=== PATIENT | female | born 1965 | race Caucasian/White ===

== ENCOUNTER 2017-02-06 18:48 | Inpatient (IN) | payer BC ==
[2017-02-06] MEDS ORDERED: ONDANSETRON 4 MG/2 ML VIAL IVP STA (19:50)
[2017-02-06] MEDS ORDERED: RX INFO: IV CONTRAST WAS GIVEN 1 EACH MISC MISCELLANE PRN (19:50)
[2017-02-06] MEDS ORDERED: SODIUM CHLORIDE 0.9% 1,000 ML IV STA ×2 (19:50)
[2017-02-06] MEDS ORDERED: SODIUM CHLORIDE 0.9% 500 ML IV STA (19:50)
[2017-02-06] MEDS ORDERED: MORPHINE SULFATE 4 MG/ML SYRINGE IV STA (19:50)
--- NOTE | 2017-02-06 19:55 | ED ---
General Adult HPI - General Chief complaint: Abdominal Pain Stated complaint: poss bowel obstruction Time Seen by Provider: 02/06/17 19:38 Source: patient, RN notes reviewed, old records reviewed Mode of arrival: ambulatory Limitations: no limitations - History of Present Illness Initial comments: This is a 51-year-old female ER for evaluation. This patient's present today for evaluation of abdominal pain, severe bowel pain. Patient has complex bowel history, complex surgical history. Patient states she has severe cramping of bowel pain with nausea no vomiting last [place] last last night. No fevers. No travel history no sick contacts to family members with similar symptoms - Related Data Home Medications Medication Instructions Recorded Confirmed Hydrochlorothiazide [Hydrodiuril] 25 mg PO DAILY 11/08/14 02/06/17 Ibuprofen [Motrin] 800 mg PO TID PRN 11/09/14 02/06/17 HYDROcodone/APAP 10-325MG [[place] 1 tab PO TID PRN 02/06/17 02/06/17 10-325] Allergies Allergy/AdvReac Type Severity Reaction Status Date / Time Penicillins Allergy Rash/Hives Verified 02/06/17 19:07 Sulfa (Sulfonamide Allergy Rash/Hives Verified 02/06/17 19:07 Antibiotics) Review of Systems ROS Statement: Those systems with pertinent positive or pertinent negative responses have been documented in the HPI. ROS Other: All systems not noted in ROS Statement are negative. Past Medical History Past Medical History: Hypertension Additional Past Medical History / Comment(s): knee pain obesity History of Any Multi-Drug Resistant Organisms: ESBL Date of last positivie culture/infection: 12/04/16 MDRO Source:: [email or web address] Past Surgical History: Appendectomy, Cholecystectomy Additional Past Surgical History / Comment(s): breast reduction, lap band Past Anesthesia/Blood Transfusion Reactions: No Reported Reaction Past Psychological History: Anxiety Smoking Status: Never smoker Past Alcohol Use History: Occasional Past Drug Use History: None Reported General Exam Limitations: no limitations General appearance: alert, in no apparent distress, obese Head exam: Present: atraumatic, normocephalic, normal inspection Eye exam: Present: normal appearance, PERRL, EOMI. Absent: scleral icterus, conjunctival injection, periorbital swelling ENT exam: Present: normal exam, mucous membranes moist Neck exam: Present: normal inspection. Absent: tenderness, meningismus, lymphadenopathy Respiratory exam: Present: normal lung sounds bilaterally. Absent: respiratory distress, wheezes, rales, rhonchi, stridor Cardiovascular Exam: Present: regular rate, normal rhythm, normal heart sounds. Absent: systolic murmur, diastolic murmur, rubs, gallop, clicks GI/Abdominal exam: Present: soft, normal bowel sounds. Absent: distended, tenderness, guarding, rebound, rigid Extremities exam: Present: normal inspection, full ROM, normal capillary refill. Absent: tenderness, pedal edema, joint swelling, calf tenderness Back exam: Present: normal inspection Neurological exam: Present: alert, oriented X3, CN II-XII intact Psychiatric exam: Present: normal affect, normal mood Skin exam: Present: warm, dry, intact, normal color. Absent: rash Course Vital Signs 02/06/17 02/06/17 19:04 21:13 Temperature 98.3 F Pulse Rate 90 85 Respiratory 18 18 Rate Blood Pressure 178/94 141/64 O2 Sat by Pulse 99 98 Oximetry - Reevaluation(s) Reevaluation #1: 02/06/17 21:21 Patient's pain is controlled Medical Decision Making - Medical Decision Making [age] female year with multiple abdominal surgeries coming in with abdominal pain. Positive small bowel obstruction, Patel for nothing by mouth pain control - Lab Data Result diagrams: 02/06/17 20:37 02/06/17 20:37 Lab Results 02/06/17 02/06/17 02/06/17 Range/Units 20:37 20:37 20:37 WBC 12.9 H (3.8-10.6) k/uL RBC 5.37 (3.80-5.40) m/uL Hgb 16.0 (11.4-16.0) gm/dL Hct 44.4 (34.0-46.0) % MCV 82.8 (80.0-100.0) fL MCH 29.8 (25.0-35.0) pg MCHC 36.0 (31.0-37.0) g/dL RDW 13.5 (11.5-15.5) % Plt Count 278 (150-450) k/uL Neutrophils % 82 % Lymphocytes % 11 % Monocytes % 4 % Eosinophils % 1 % Basophils % 0 % Neutrophils # 10.7 H (1.3-7.7) k/uL Lymphocytes # 1.4 (1.0-4.8) k/uL Monocytes # 0.5 (0-1.0) k/uL Eosinophils # 0.1 (0-0.7) k/uL Basophils # 0.0 (0-0.2) k/uL Sodium 141 (137-145) mmol/L Potassium 4.1 (3.5-5.1) mmol/L Chloride 103 (98-107) mmol/L Carbon Dioxide 25 (22-30) mmol/L Anion Gap 13 mmol/L BUN 19 H (7-17) mg/dL Creatinine 0.60 (0.52-1.04) mg/dL Est GFR (MDRD) Af Amer >60 (>60 ml/min/1.73 sqM) Est GFR (MDRD) Non-Af >60 (>60 ml/min/1.73 sqM) Glucose 121 H (74-99) mg/dL Plasma Lactic Acid Frank 1.6 (0.7-2.0) mmol/L Calcium 9.8 (8.4-10.2) mg/dL Total Bilirubin 1.2 (0.2-1.3) mg/dL AST 48 H (14-36) U/L ALT 41 (9-52) U/L Alkaline Phosphatase 95 (38-126) U/L Total Protein 7.7 (6.3-8.2) g/dL Albumin 4.5 (3.5-5.0) g/dL Amylase 39 (30-110) U/L Lipase 177 (23-300) U/L - Radiology Data Radiology results: report reviewed (CT abdomen and pelvis positive for small bowel obstruction), image reviewed Disposition Clinical Impression: SBO (small bowel obstruction) Disposition: ADMITTED IP TO THIS [facility] Condition: Fair Referrals: Melissa Barnes MD [Primary Care Provider] - 1-2 days
[2017-02-06 21:05] LABS: ALT 41 U/L (9-52); AST 48 U/L (14-36); Alkaline Phosphatase 95 U/L (38-126); Amylase 39 U/L (30-110); Anion Gap 13 mmol/L; Blood Urea Nitrogen 19 mg/dL (7-17); Calcium 9.8 mg/dL (8.4-10.2); Carbon Dioxide 25 mmol/L (22-30); Chloride 103 mmol/L (98-107); Glucose 121 mg/dL (74-99); Non-African American GFR(MDRD) >60 (>60 ml/min/1.73 sqM); Sodium 141 mmol/L (137-145); Total Bilirubin 1.2 mg/dL (0.2-1.3); Total Protein 7.7 g/dL (6.3-8.2)
[2017-02-06 21:07] LABS: Potassium 4.1 mmol/L (3.5-5.1)
[2017-02-06 21:08] LABS: Basophils % (A) 0 %; CHCM 36.5; Eosinophils # (A) 0.1 k/uL (0-0.7); Eosinophils % (A) 1 %; HCT 44.4 % (34.0-46.0); HDW 3.16; Luc # (Auto) 0.14; Luc % (Auto) 1; Lymphocytes # (A) 1.4 k/uL (1.0-4.8); Lymphocytes % (A) 11 %; MCH 29.8 pg (25.0-35.0); MCV 82.8 fL (80.0-100.0); Mean Platelet Volume 7.5; Monocytes # (A) 0.5 k/uL (0-1.0); Monocytes % (A) 4 %; Neutrophils # (A) 10.7 k/uL (1.3-7.7); Neutrophils % (A) 82 %; RBC 5.37 m/uL (3.80-5.40); RDW 13.5 % (11.5-15.5); WBC 12.9 k/uL (3.8-10.6); WBC (Perox) 12.41
--- NOTE | 2017-02-06 21:10 | CT ---
EXAMINATION TYPE: CT abdomen pelvis w con DATE OF EXAM: 02/06/2017 COMPARISON: 06/04/2010 HISTORY: Generalized abdominal pain with bloating. CT DLP: 3236.80 mGycm Automated exposure control for dose reduction was used. TECHNIQUE: Helical acquisition of images was performed from the lung bases through the pelvis. CONTRAST: Performed without Oral Contrast and with IV Contrast, patient injected with 100 mL of Omnipaque 300. FINDINGS: There is a sleeve around the gastric fundus. Liver shows no focal defect. There are clips from cholec ystectomy. Bile ducts are not dilated. Spleen and pancreas appear normal. There is no adrenal mass. Kidneys show satisfactory contrast opacification. There are probably left r enal parapelvic cysts. There is no retroperitoneal adenopathy.. Left ureter is not dilated. There are multiple distended small bowel loops with fluid levels. These measure up to 4.[address] The distal small bowel has normal diameter. I see no intestinal wall thickening. Bladder distends smoothly. There is no sign of a pelvic mass. Appendix is not definitely seen. There is no sign of appendicitis. I see no bony destructive process. There are spondylotic changes in the t horacic and lumbar spine. IMPRESSION: THERE ARE DILATED LOOPS OF PROXIMAL SMALL BOWEL WITH FLUID CONSISTENT WITH A PARTIAL MECHANICAL OBSTR UCTION. THIS APPEARS NEW COMPARED TO OLD EXAM. THE TRANSITION POINT IS NOT IDENTIFIED.
[2017-02-06 21:20] LABS: Creatine Kinase 91 U/L (30-135)
[2017-02-06] MEDS ORDERED: SODIUM CHLORIDE 0.9% 1,000 ML IV ONE (21:21)
[2017-02-06] MEDS ORDERED: PANTOPRAZOLE 40 MG/10 ML VIAL IVP STA (21:23)
[2017-02-06] MEDS ORDERED: ONDANSETRON 4 MG/2 ML VIAL IVP PRN (21:23)
[2017-02-06 21:32] LABS: Creatine Kinase MB 1.4 ng/mL (0.0-2.4); Troponin I <0.012 ng/mL (0.000-0.034)
[2017-02-07] MEDS: MORPHINE SULFATE 4 MG/ML SYRINGE IVP PRN ×4 (00:07→12:31)
[2017-02-07 00:17] LABS: Appearance,Urine Clear (Clear); Bilirubin,Urine Negative (Negative); Glucose,Urine (UA) Negative (Negative); Ketones,Urine Negative (Negative); Leukocyte Esterase,Urine Negative (Negative); Nitrite,Urine Negative (Negative); Protein,Urine Negative (Negative); Specific Gravity,Urine 1.043 (1.001-1.035); UA Billing (MACRO vs. MICRO) CHEM; Urobilinogen,Urine <2.0 mg/dL (<2.0)
[2017-02-07 02:02] VITALS: RESP 20
[2017-02-07] MEDS: ENOXAPARIN 40 MG/0.4 ML SYRINGE SQ SCH (07:53)
[2017-02-07] MEDS: PANTOPRAZOLE 40 MG/10 ML VIAL IVP SCH (07:58)
[2017-02-07] MEDS: BISACODYL 10 MG SUPP RECTAL STA ×2 (11:22→15:20)
[2017-02-07 11:25] VITALS: BMI 50.5
[2017-02-07] MEDS ORDERED: HYDROcodone/APAP 10-325MG 1 EACH TAB PO PRN (12:04)
[2017-02-07] MEDS ORDERED: IBUPROFEN 800 MG TAB PO PRN (12:04)
--- NOTE | 2017-02-07 12:50 | P.GSHP ---
History of Present Illness H&P Date: 02/07/17 Chief Complaint: Abdominal pain The patient began developing crampy abdominal pain yesterday. It progressed so she came into the emergency department and was admitted. She hasn't had anything like this in the past. She did have some constipation. She had a very small hard bowel movement yesterday. She was not passing gas yesterday. She started passing some today and is feeling better. No fevers or chills. Some nausea but no vomiting. No one at home is been ill. SHe did have a colonoscopy done but it was probably 12 years ago. No history of ulcer disease. - Review of Systems All systems: negative - Constitutional Constitutional: Denies chills, Denies fever Past Medical History Past Medical History: Hypertension, Respiratory Disorder Additional Past Medical History / Comment(s): knee pain obesity History of Any Multi-Drug Resistant Organisms: ESBL Date of last positivie culture/infection: 12/04/14 MDRO Source:: [email or web address] Past Surgical History: Appendectomy, Cholecystectomy Additional Past Surgical History / Comment(s): breast reduction, lap band Past Anesthesia/Blood Transfusion Reactions: No Reported Reaction Past Psychological History: Anxiety Smoking Status: Never smoker Past Alcohol Use History: Occasional Past Drug Use History: None Reported - Past Family History Mother Family Medical History: Cancer Father Family Medical History: Cancer Medications and Allergies Home Medications Medication Instructions Recorded Confirmed Type Hydrochlorothiazide [Hydrodiuril] 25 mg PO DAILY 11/08/14 02/06/17 History Ibuprofen [Motrin] 800 mg PO TID PRN 11/09/14 02/06/17 History HYDROcodone/APAP 10-325MG [[place] 1 tab PO TID PRN 02/06/17 02/06/17 History 10-325] Allergies Allergy/AdvReac Type Severity Reaction Status Date / Time Penicillins Allergy Rash/Hives Verified 02/06/17 19:07 Sulfa (Sulfonamide Allergy Rash/Hives Verified 02/06/17 19:07 Antibiotics) Surgical - Exam Osteopathic Statement: *. No significant issues noted on an osteopathic structural exam other than those noted in the History and Physical/Consult. Vital Signs Temp Pulse Resp BP Pulse Ox 98.3 F 90 18 178/94 99 02/06/17 19:04 02/06/17 19:04 02/06/17 19:04 02/06/17 19:04 02/06/17 19:04 - General well developed, well nourished, no distress, obese - Eyes normal ocular movement - ENT normal mucosa, no congestion - Neck trachea midline, no lymphadectomy - Respiratory normal expansion, normal respiratory effort, clear to auscultation - Cardiovascular Rhythm: regular - Abdomen Abdomen: soft, tender (Minimal epigastric tenderness), surgical scars (Right lower abdomen and. Umbilical), no guarding, no rigid, no rebound, no distended (No tympany to percussion) Hernia: no umbilical - Psychiatric oriented to time, oriented to person, oriented to place, speech is normal, memory intact Results - Labs 02/06/17 20:37 02/06/17 20:37 Abnormal Lab Results - Last 24 Hours (Table) 02/06/17 02/06/17 02/06/17 Range/Units 20:37 20:37 23:40 WBC 12.9 H (3.8-10.6) k/uL Neutrophils # 10.7 H (1.3-7.7) k/uL BUN 19 H (7-17) mg/dL Glucose 121 H (74-99) mg/dL AST 48 H (14-36) U/L Ur Specific [place] 1.043 H (1.001-1.035) Microbiology - Last 24 Hours (Table) 02/06/17 23:40 Urine Culture - Preliminary Urine,Voided Diabetes panel 02/06/17 Range/Units 20:37 Sodium 141 (137-145) mmol/L Potassium 4.1 (3.5-5.1) mmol/L Chloride 103 (98-107) mmol/L Carbon Dioxide 25 (22-30) mmol/L BUN 19 H (7-17) mg/dL Creatinine 0.60 (0.52-1.04) mg/dL Glucose 121 H (74-99) mg/dL Calcium 9.8 (8.4-10.2) mg/dL AST 48 H (14-36) U/L ALT 41 (9-52) U/L Alkaline Phosphatase 95 (38-126) U/L Total Protein 7.7 (6.3-8.2) g/dL Albumin 4.5 (3.5-5.0) g/dL Calcium panel 02/06/17 Range/Units 20:37 Calcium 9.8 (8.4-10.2) mg/dL Albumin 4.5 (3.5-5.0) g/dL Pituitary panel 02/06/17 Range/Units 20:37 Sodium 141 (137-145) mmol/L Potassium 4.1 (3.5-5.1) mmol/L Chloride 103 (98-107) mmol/L Carbon Dioxide 25 (22-30) mmol/L BUN 19 H (7-17) mg/dL Creatinine 0.60 (0.52-1.04) mg/dL Glucose 121 H (74-99) mg/dL Calcium 9.8 (8.4-10.2) mg/dL Adrenal panel 02/06/17 Range/Units 20:37 Sodium 141 (137-145) mmol/L Potassium 4.1 (3.5-5.1) mmol/L Chloride 103 (98-107) mmol/L Carbon Dioxide 25 (22-30) mmol/L BUN 19 H (7-17) mg/dL Creatinine 0.60 (0.52-1.04) mg/dL Glucose 121 H (74-99) mg/dL Calcium 9.8 (8.4-10.2) mg/dL Total Bilirubin 1.2 (0.2-1.3) mg/dL AST 48 H (14-36) U/L ALT 41 (9-52) U/L Alkaline Phosphatase 95 (38-126) U/L Total Protein 7.7 (6.3-8.2) g/dL Albumin 4.5 (3.5-5.0) g/dL - Imaging CT scan - abdomen: report reviewed, image reviewed Assessment and Plan (1) Ileus Status: Acute (2) Constipation Status: Acute Plan: She is been admitted. We'll start her on clear liquids today. Advance it as tolerated. Given her suppository to stimulate colon function. Likely be able to discharge her in 24-48 hours. Recommend outpatient colonoscopy.
[2017-02-07] MEDS ORDERED: HYDROCHLOROTHIAZIDE 25 MG TAB PO SCH (21:00)
[2017-02-08] MEDS: PANTOPRAZOLE 40 MG/10 ML VIAL IVP SCH (07:33)
[2017-02-08] MEDS: ENOXAPARIN 40 MG/0.4 ML SYRINGE SQ SCH (07:33)
[2017-02-08 08:29] VITALS: BP 152/88; PULSE 75; TEMP 97.4
--- NOTE | 2017-02-08 11:21 | P.PN ---
Subjective Principal diagnosis: Abdominal pain rule out small bowel obstruction The patient's feeling much better today. She is tolerating a clear liquid diet. Positive flatus. No nausea or vomiting. Objective - Vital Signs Vital signs: Vital Signs Temp 97.4 F L 02/08/17 08:19 Pulse 75 02/08/17 08:19 Resp 20 02/08/17 08:19 BP 152/88 02/08/17 08:19 Pulse Ox 96 02/08/17 08:19 Intake & Output 02/07/17 02/08/17 02/08/17 18:59 06:59 18:59 Intake Total 480 200 Balance 480 200 Weight 129.274 kg 129.274 kg Intake: Oral 480 200 Other: # Voids 1 # Bowel Movements 1 - Constitutional General appearance: Present: cooperative, no acute distress - Gastrointestinal General gastrointestinal: Present: normal bowel sounds, soft. Absent: tenderness (No guarding no rebound) - Labs CBC & Chem 7: 02/06/17 20:37 02/06/17 20:37 Labs: Microbiology - Last 24 Hours (Table) 02/06/17 23:40 Urine Culture - Final Urine,Voided Strep agalactiae - (group b) Assessment and Plan (1) Ileus Status: Acute (2) Constipation Status: Acute Plan: We'll start her on a regular diet. If she is able to tolerate it she can be discharged later today on a scheduled stool softener. Follow-up for outpatient colonoscopy
== END 2017-02-08 14:38 | disposition home or self-care (01) | DRG 390 ==
LOC: EC 18:48 → 4MS4W 21:21 → 6PED 02-07 14:19
PROVIDERS: ADMIT Surgery; ATTEND Surgery
DX: K56.7 Ileus, unspecified (principal); I10 Essential (primary) hypertension; K59.00 Constipation, unspecified; M25.569 Pain in unspecified knee; E66.9 Obesity, unspecified; Z88.0 Allergy status to penicillin; Z88.2 Allergy status to sulfonamides; Z86.59 Personal history of other mental and behavioral disorders; Z87.09 Personal history of other diseases of the respiratory system; Z79.899 Other long term (current) drug therapy; Z71.3 Dietary counseling and surveillance; Z80.9 Family history of malignant neoplasm, unspecified; Z90.49 Acquired absence of other specified parts of digestive tract; Z98.84 Bariatric surgery status; Z87.440 Personal history of urinary (tract) infections; Z79.1 Long term (current) use of non-steroidal anti-inflammatories (NSAID); Z79.891 Long term (current) use of opiate analgesic
CPT/HCPCS: 36415; 74177; 80053; 81003; 82150; 82550; 82553; 83605; 83690; 84484; 85025; 87086; 96361; 96374; 96375; 99285

== ENCOUNTER 2017-02-16 19:04 | Inpatient (IN) | payer BC ==
--- NOTE | 2017-02-16 19:18 | ED ---
General Adult HPI - General Chief complaint: Abdominal Pain Stated complaint: NVD, weakness Time Seen by Provider: 02/16/17 19:09 Source: patient Mode of arrival: EMS Limitations: no limitations - History of Present Illness Initial comments: Patient is a 51-year-old female with past medical history significant for small bowel obstruction approximately 10 days ago. The patient was admitted to the hospital and kept nothing by mouth prior to be starting on a clear liquid diet. Patient reports that she was discharged from the hospital 7 days ago and had been doing well tolerating regular diet. She reports that today she developed severe sharp abdominal pain in the epigastric and sanjay-umbilical region. She reports at this pain feels somewhat inferior in location to the location of the pain of prior bowel obstructions. Pain is associated with nausea and a single episode of nonbloody nonbilious emesis which occured en route to the hospital after being given narcotic pain medications. She does report the pain is worse with deep breathing or any palpation of the abdomen. She denies any fevers , chills, chest pain or shortness of breath. She reports she had a large soft bowel movement yesterday and a formed bowel movement today. She denies any change in bladder habits. She denies any dysuria, urinary frequency or hesitancy. She can't identify any relieving factors to the pain. -: hour(s) Location: abdomen Severity scale (1-10): 10 Quality: sharp Consistency: intermittent, colicky Improves with: none Worsens with: movement, other (palpation) Associated Symptoms: loss of appetite, nausea/vomiting - Related Data Home Medications Medication Instructions Recorded Confirmed Hydrochlorothiazide [Hydrodiuril] 25 mg PO DAILY 11/08/14 02/16/17 Ibuprofen [Motrin] 800 mg PO TID PRN 11/09/14 02/16/17 HYDROcodone/APAP 10-325MG [[place] 1 tab PO TID PRN 02/06/17 02/16/17 10-325] Previous Rx's Medication Instructions Recorded Docusate [Colace] 100 mg PO DAILY #100 capsule 02/08/17 Allergies Allergy/AdvReac Type Severity Reaction Status Date / Time Penicillins Allergy Rash/Hives Verified 02/16/17 20:03 Sulfa (Sulfonamide Allergy Rash/Hives Verified 02/16/17 20:03 Antibiotics) Review of Systems ROS Statement: Those systems with pertinent positive or pertinent negative responses have been documented in the HPI. ROS Other: All systems not noted in ROS Statement are negative. Constitutional: Denies: fever ENT: Denies: throat pain Respiratory: Denies: cough, dyspnea, wheezes Cardiovascular: Denies: chest pain, palpitations Endocrine: Reports: fatigue Gastrointestinal: Reports: abdominal pain, nausea, vomiting. Denies: diarrhea, constipation Genitourinary: Denies: urgency, dysuria Musculoskeletal: Denies: back pain Skin: Denies: rash Neurological: Denies: headache, weakness Psychiatric: Denies: anxiety Hematological/Lymphatic: Denies: easy bleeding, easy bruising Past Medical History Past Medical History: Hypertension, Respiratory Disorder Additional Past Medical History / Comment(s): knee pain obesity History of Any Multi-Drug Resistant Organisms: ESBL Date of last positivie culture/infection: 12/04/14 MDRO Source:: [email or web address] Past Surgical History: Appendectomy, Cholecystectomy Additional Past Surgical History / Comment(s): breast reduction, lap band Past Anesthesia/Blood Transfusion Reactions: No Reported Reaction Past Psychological History: Anxiety Smoking Status: Never smoker Past Alcohol Use History: Occasional Past Drug Use History: None Reported - Past Family History Mother Family Medical History: Cancer Father Family Medical History: Cancer General Exam Limitations: no limitations General appearance: alert, obese, other (appears uncomfortable) Head exam: Present: atraumatic, normocephalic Eye exam: Present: normal appearance, PERRL ENT exam: Present: normal exam Neck exam: Present: normal inspection. Absent: tenderness, meningismus, lymphadenopathy Respiratory exam: Present: normal lung sounds bilaterally. Absent: respiratory distress, wheezes, rales, rhonchi, stridor Cardiovascular Exam: Present: regular rate, normal rhythm, normal heart sounds. Absent: systolic murmur, diastolic murmur, rubs, gallop, clicks GI/Abdominal exam: Present: soft, distended, tenderness, diminished bowel sounds. Absent: guarding, rebound, rigid Rectal exam: Present: deferred Extremities exam: Present: normal inspection, full ROM, normal capillary refill. Absent: tenderness, pedal edema, joint swelling, calf tenderness Back exam: Present: normal inspection Neurological exam: Present: alert, oriented X3, CN II-XII intact Psychiatric exam: Present: normal affect, normal mood Skin exam: Present: warm, dry, intact, normal color. Absent: rash Course Vital Signs 02/16/17 02/16/17 19:07 20:09 Temperature 97.8 F Pulse Rate 88 86 Respiratory 20 20 Rate Blood Pressure 190/96 182/88 O2 Sat by Pulse 96 98 Oximetry Medical Decision Making - Medical Decision Making Patient was seen and evaluated, vital signs reviewed History was obtained from the patient, her and medical record Physical exam and history of recurrent bowel obstruction Labs and acute abdominal series were ordered Zofran for nausea Acute abdominal series reveals air-fluid level in the stomach however that he is limited by patient's body habitus Labs reveal leukocytosis with neutrophilia, considering this and the patient's acute abdominal pain I will order a computed tomography scan for further evaluation Morphine Given for analgesia CT reveals recurrent SBO Patient care was discussed with Leanne who accepts admission for small bowel obstruction to Dr. Holley - Lab Data Result diagrams: 02/16/17 19:15 02/16/17 19:15 Lab Results 02/16/17 02/16/17 Range/Units 19:15 19:15 WBC 17.5 H (3.8-10.6) k/uL RBC 5.52 H (3.80-5.40) m/uL Hgb 16.2 H (11.4-16.0) gm/dL Hct 46.3 H (34.0-46.0) % MCV 83.9 (80.0-100.0) fL MCH 29.4 (25.0-35.0) pg MCHC 35.1 (31.0-37.0) g/dL RDW 13.6 (11.5-15.5) % Plt Count 335 (150-450) k/uL Neutrophils % 89 % Lymphocytes % 6 % Monocytes % 4 % Eosinophils % 1 % Basophils % 0 % Neutrophils # 15.5 H (1.3-7.7) k/uL Lymphocytes # 1.0 (1.0-4.8) k/uL Monocytes # 0.7 (0-1.0) k/uL Eosinophils # 0.2 (0-0.7) k/uL Basophils # 0.0 (0-0.2) k/uL Sodium 143 (137-145) mmol/L Potassium 3.4 L (3.5-5.1) mmol/L Chloride 103 (98-107) mmol/L Carbon Dioxide 26 (22-30) mmol/L Anion Gap 14 mmol/L BUN 20 H (7-17) mg/dL Creatinine 0.70 (0.52-1.04) mg/dL Est GFR (MDRD) Af Amer >60 (>60 ml/min/1.73 sqM) Est GFR (MDRD) Non-Af >60 (>60 ml/min/1.73 sqM) Glucose 115 H (74-99) mg/dL Calcium 10.1 (8.4-10.2) mg/dL Total Bilirubin 1.0 (0.2-1.3) mg/dL AST 46 H (14-36) U/L ALT 45 (9-52) U/L Alkaline Phosphatase 90 (38-126) U/L Total Protein 7.8 (6.3-8.2) g/dL Albumin 4.6 (3.5-5.0) g/dL Lipase 229 (23-300) U/L Disposition Clinical Impression: SBO (small bowel obstruction), Leukocytosis, Dehydration Disposition: ADMITTED IP TO THIS [facility] Condition: Good Referrals: Melissa Barnes MD [Primary Care Provider] - 1-2 days Decision Date: 02/16/17 Decision Time: 21:04
[2017-02-16] MEDS ORDERED: ONDANSETRON 4 MG/2 ML VIAL IVP STA (19:25)
[2017-02-16] MEDS ORDERED: SODIUM CHLORIDE 0.9% 1,000 ML IV ONE ×2 (19:25→20:21)
[2017-02-16 19:48] LABS: Basophils % (A) 0 %; CH 29.6; CHCM 35.5; Eosinophils # (A) 0.2 k/uL (0-0.7); Eosinophils % (A) 1 %; HCT 46.3 % (34.0-46.0); HDW 3.09; HGB 16.2 gm/dL (11.4-16.0); Luc # (Auto) 0.09; Luc % (Auto) 1; Lymphocytes % (A) 6 %; MCH 29.4 pg (25.0-35.0); MCHC 35.1 g/dL (31.0-37.0); MCV 83.9 fL (80.0-100.0); Mean Platelet Volume 7.8; Monocytes # (A) 0.7 k/uL (0-1.0); Monocytes % (A) 4 %; Neutrophils # (A) 15.5 k/uL (1.3-7.7); Neutrophils % (A) 89 %; RBC 5.52 m/uL (3.80-5.40); RDW 13.6 % (11.5-15.5); WBC 17.5 k/uL (3.8-10.6); WBC (Perox) 17.01
[2017-02-16 19:52] LABS: ALT 45 U/L (9-52); AST 46 U/L (14-36); Alkaline Phosphatase 90 U/L (38-126); Anion Gap 14 mmol/L; Blood Urea Nitrogen 20 mg/dL (7-17); Calcium 10.1 mg/dL (8.4-10.2); Carbon Dioxide 26 mmol/L (22-30); Chloride 103 mmol/L (98-107); Glucose 115 mg/dL (74-99); Non-African American GFR(MDRD) >60 (>60 ml/min/1.73 sqM); Potassium 3.4 mmol/L (3.5-5.1); Sodium 143 mmol/L (137-145); Total Protein 7.8 g/dL (6.3-8.2)
[2017-02-16] MEDS ORDERED: RX INFO: IV CONTRAST WAS GIVEN 1 EACH MISC MISCELLANE PRN (19:58)
[2017-02-16] MEDS ORDERED: MORPHINE SULFATE 4 MG/ML SYRINGE IVP STA (20:02)
--- NOTE | 2017-02-16 20:18 | XR ---
EXAMINATION TYPE: XR abdomen acute w cxr DATE OF EXAM: 02/16/2017 COMPARISON: NONE HISTORY: Patient has increased now pain and nausea for 3 hours history small bowel obstruction last w [facility]. She has a history of lap band placement. TECHNIQUE: Supine, upright, and left side down lateral decubitus views of the abdomen are obtained. Single AP view of the chest was also obtained. FINDINGS: There is no evidence for pneumoperitoneum. There is nonspecific bowel gas pattern. The stomach is distended and demonstrates an air-fluid level. Previously identified small bowel obstruction is not definitively seen on the current examination ho wever it is difficult to compare CT scan with the radiograph given the patient's habitus. The phi ang le of the lap band is 66 degrees which is slightly more than what would be expected however this is s table in appearance when compared to the CT scan from February 06. Some stool is noted in the cecum. IMPRESSION: The patient's small bowel obstruction is felt to have improved, however this is difficult to compare. Clinical correlation is required. The phi angle of the lap band is 66 degrees which is slightly more than normal however, it is stable when compared to the previous study from February 06.
--- NOTE | 2017-02-16 20:38 | CT ---
EXAMINATION TYPE: CT abdomen pelvis w con DATE OF EXAM: 02/16/2017 COMPARISON: February 06, 2017. HISTORY: Patient complains of nausea, vomiting, diarrhea, and weakness. CT DLP: 2191.1 mGycm Automated exposure control for dose reduction was used. TECHNIQUE: Helical acquisition of images was performed from the lung bases through the pelvis. CONTRAST: Performed without Oral Contrast and with IV Contrast, patient injected with 100 mL of Omnipaque 300. FINDINGS: Lung bases are clear. No pleural pericardial effusion is identified. Lap band is again noted. The stomach is filled with ingested material and there is an air-fluid level . It is much more distended than it was on the previous study. The liver demonstrates somewhat hypode nse appearance which is felt to be due to fatty infiltration. There has been a cholecystectomy. The s pleen, pancreas, adrenal glands, and kidneys are all unchanged. Prominent loops of small bowel are again identified similar to the previous study measuring up to 4 c m in diameter. These are considered to be dilated. There is no free intraperitoneal air or free fluid . The uterus is present. The urinary bladder is unremarkable. There is no mesenteric or retroperitone al lymphadenopathy. The aorta and osseous structures are unchanged. IMPRESSION: Findings similar to the previous study. Dilated loops of proximal small bowel are again noted consist ent with partial or early complete bowel bowel obstruction.
[2017-02-16] MEDS ORDERED: NALOXONE 0.4 MG/ML 1 ML VIAL IV PRN (20:58)
[2017-02-16] MEDS ORDERED: MORPHINE SULFATE 4 MG/ML SYRINGE IV PRN (20:58)
[2017-02-16 21:06] LABS: Appearance,Urine Clear (Clear); Bilirubin,Urine Negative (Negative); Glucose,Urine (UA) Negative (Negative); Ketones,Urine 1+ (Negative); Leukocyte Esterase,Urine Trace (Negative); Mucus,Urine Rare /hpf; Nitrite,Urine Negative (Negative); PH, Urine 5.5 (5.0-8.0); Particle Count 3044; Protein,Urine Negative (Negative); RBC,Urine 3 /hpf (0-5); Specific Gravity,Urine 1.032 (1.001-1.035); Squamous Epithelial Cell,Urine 2 /hpf (0-4); UA Billing (MACRO vs. MICRO) MICRO; Urobilinogen,Urine <2.0 mg/dL (<2.0); WBC,Urine 2 /hpf (0-5)
[2017-02-16] MEDS ORDERED: ONDANSETRON 4 MG/2 ML VIAL IVP PRN (22:46)
[2017-02-17] MEDS: SODIUM CHLORIDE 0.9% 1,000 ML IV SCH ×2 (00:15→15:53)
[2017-02-17] MEDS ORDERED: TEMAZEPAM 15 MG CAP PO PRN (00:30)
[2017-02-17] MEDS ORDERED: ALPRAZolam 0.25 MG TAB PO PRN (00:30)
[2017-02-17] MEDS ORDERED: hydrALAZINE HCL 20 MG/ML 1 ML VIAL IVP PRN (00:30)
[2017-02-17] MEDS ORDERED: cloNIDine HCL 0.1 MG TAB PO PRN (00:30)
[2017-02-17 03:47] VITALS: BMI 51.9
[2017-02-17 08:10] LABS: Basophils % (A) 0 %; CH 29.5; CHCM 34.9; Eosinophils # (A) 0.2 k/uL (0-0.7); Eosinophils % (A) 2 %; HCT 39.9 % (34.0-46.0); HDW 3.08; Luc # (Auto) 0.12; Luc % (Auto) 1; Lymphocytes # (A) 1.8 k/uL (1.0-4.8); Lymphocytes % (A) 19 %; MCH 29.9 pg (25.0-35.0); MCHC 35.2 g/dL (31.0-37.0); Mean Platelet Volume 7.5; Monocytes # (A) 0.4 k/uL (0-1.0); Monocytes % (A) 5 %; Neutrophils # (A) 6.9 k/uL (1.3-7.7); Neutrophils % (A) 72 %; RDW 13.6 % (11.5-15.5); WBC 9.5 k/uL (3.8-10.6); WBC (Perox) 9.64
[2017-02-17 08:12] LABS: ALT 34 U/L (9-52); AST 31 U/L (14-36); Alkaline Phosphatase 60 U/L (38-126); Anion Gap 9 mmol/L; Blood Urea Nitrogen 14 mg/dL (7-17); Calcium 8.4 mg/dL (8.4-10.2); Carbon Dioxide 28 mmol/L (22-30); Chloride 106 mmol/L (98-107); Glucose 89 mg/dL (74-99); Non-African American GFR(MDRD) >60 (>60 ml/min/1.73 sqM); Potassium 3.4 mmol/L (3.5-5.1); Sodium 143 mmol/L (137-145); Total Bilirubin 0.9 mg/dL (0.2-1.3)
[2017-02-17] MEDS: PANTOPRAZOLE 40 MG/10 ML VIAL IVP SCH (08:29)
[2017-02-17] MEDS: HEPARIN SODIUM,PORCINE 5,000 UNIT/ML 1 ML VIAL SQ SCH ×2 (08:29→20:34)
--- NOTE | 2017-02-17 10:50 | HP ---
HISTORY AND PHYSICAL DATE OF SERVICE: 02/16/2017. CHIEF COMPLAINT: Abdominal pain and nausea. HISTORY OF PRESENT ILLNESS: This 51-year-old woman with a past medical history of multiple medical problems such as history of hypertension, history of knee joint, obesity, history of E. coli, history of appendectomy and cholecystectomy, and lap-band surgery, being followed by Dr. Melissa Barnes in the outpatient setting, has had features of apparent past small bowel obstruction. Apparently recently patient was discharged, subsequently patient ate some peanuts which the patient ate also before the previous admission, and patient started developing sharp abdominal pain in the epigastric area/periumbilical area. The patient also felt nauseous. Patient came to [facility] and was admitted for further evaluation and treatment. The patient had an acute abdominal series as well as abdominal and pelvic CT scan. The CT scan of the abdomen showed findings similar to the previous study, dilated loops of small bowel consistent with partially early complete bowel obstruction. The patient was admitted for further evaluation and treatment. There is no history of fevers or rigors. No history of headache, loss of consciousness or seizures at this time. PAST MEDICAL HISTORY: Previous bowel obstruction, history of respiratory disorder, history of lap-band surgery, appendectomy, cholecystectomy, and hypertension. MEDICATIONS: Prior to admission: 1. Motrin 800 mg daily. 2. HydroDIURIL 25 mg daily. 3. [place] 10 mg t.i.d. p.r.n. 4. Colace 100 mg daily. ALLERGIES: PENICILLIN, SULFA. FAMILY HISTORY: History of cancer in the family. SOCIAL HISTORY: No history of smoking, no alcohol intake. REVIEW OF SYSTEMS: ENT: No diminished hearing or vision. CARDIOVASCULAR: No angina. RESPIRATORY: No cough or hemoptysis. GI: As mentioned. : No dysuria. NERVOUS SYSTEM: No numbness or weakness. MUSCULOSKELETAL: As mentioned. ENDOCRINE: No history of diabetes or hypothyroidism. CONSTITUTIONAL: No loss of consciousness. PHYSICAL EXAMINATION: GENERAL: Alert, oriented x3. VITAL SIGNS: Pulse 86, respirations 20, blood pressure 118/83, temperature 97.8 , pulse ox 98% room air. HEENT: Conjunctivae normal. NECK: No JVD. CARDIOVASCULAR: S1 and S2 muffled. LUNGS: Breath sounds diminished in the bases. No rhonchi, no crackles. ABDOMEN: Soft. Mild diffuse discomfort on palpation. No guarding. No rigidity. No mass palpable. No ascites. No hepatosplenomegaly. Bowel sounds present. EXTREMITIES: Legs, no edema, no swelling. NERVOUS SYSTEM: Higher functions as mentioned. Moves all limbs equally. No focal motor or sensory deficits. LYMPH: No lymph nodes palpable in the neck, axillae, groin. SKIN: No rashes. LABS: WBC 17.8, hemoglobin 16.2. ASSESSMENT: 1. Abdominal pain and nausea, possible acute partial small-bowel obstruction. 2. History of partial small bowel obstruction. 3. Hypertension. 4. History of extended-spectrum beta-lactamase Escherichia coli. 5. History of obesity and lap-band surgery. 6. History of cholecystectomy. 7. History of appendectomy. 8. History of anxiety. 9. Obesity with body mass index of 51.9. RECOMMENDATIONS AND DISCUSSION: This 51-year-old woman presented with multiple complex medical problems. We will monitor the patient closely. Continue the current management and symptomatic treatment. Otherwise I recommend surgical evaluation with Dr. Barnes and continue to monitor. Currently the patient is on n.p.o. diet. We will monitor blood sugars closely, p.r.n. blood pressure medications. Otherwise the prognosis is guarded. Repeat labs will be ordered. Further recommendations to follow. MMODL / IJN: [id number] / MTDFamilia
--- NOTE | 2017-02-17 12:04 | P.GSCN ---
History of Present Illness Consult date: 02/17/17 Reason for Consult: Bowel obstruction History of present illness: Patient is known to our service from a prior laparoscopic banding and prior laparoscopic cholecystectomy. Her band is currently empty. She was in the hospital in late January with similar symptoms. She was seen by Dr. Ba at that time. After about 48 hours the patient's symptoms had resolved and she was discharged home. She comes back to the hospital this time again with similar symptoms. Her symptoms include crampy abdominal pain left upper quadrant fullness and pain as well as nausea and vomiting. Her bowel habits have been fairly normal however and she did have a bowel movement both yesterday and today. CAT scan was performed which shows findings consistent with a partial small bowel obstruction with the transition point in the mid small bowel. This is similar findings to the last CAT scan from the last admission. Denies rectal bleeding or melena. No history of prior small bowel obstruction. Patient has a history of previous open appendectomy in her youth related to a ruptured appendix. Denies fevers or chills. Pain is improved today. White blood cell count was elevated at 17. Today it's normal. She is afebrile. She says she feels better today. Review of Systems The patient denies any acute changes in vision or hearing, no dysphagia or odynophagia, no chest pain or shortness of breath, no dysuria or hematuria, no headache, no runny nose, no rectal bleeding or melena, no unexplained weight loss Past Medical History Past Medical History: Hypertension, Respiratory Disorder Additional Past Medical History / Comment(s): knee pain obesity History of Any Multi-Drug Resistant Organisms: ESBL Year Discovered:: 12/04/14 MDRO Source:: [email or web address] Past Surgical History: Appendectomy, Cholecystectomy Additional Past Surgical History / Comment(s): breast reduction, lap band Past Anesthesia/Blood Transfusion Reactions: No Reported Reaction Past Psychological History: Anxiety Smoking Status: Never smoker Past Alcohol Use History: Occasional Past Drug Use History: None Reported - Past Family History Mother Family Medical History: Cancer Father Family Medical History: Cancer Medications and Allergies Home Medications Medication Instructions Recorded Confirmed Type Hydrochlorothiazide [Hydrodiuril] 25 mg PO DAILY 11/08/14 02/16/17 History Ibuprofen [Motrin] 800 mg PO TID PRN 11/09/14 02/16/17 History HYDROcodone/APAP 10-325MG [[place] 1 tab PO TID PRN 02/06/17 02/16/17 History 10-325] Docusate [Colace] 100 mg PO DAILY #100 capsule 02/08/17 02/16/17 Rx Allergies Allergy/AdvReac Type Severity Reaction Status Date / Time Penicillins Allergy Rash/Hives Verified 02/16/17 20:03 Sulfa (Sulfonamide Allergy Rash/Hives Verified 02/16/17 20:03 Antibiotics) Surgical - Exam Vital Signs Temp Pulse Resp BP Pulse Ox 97.8 F 88 20 190/96 96 02/16/17 19:07 02/16/17 19:07 02/16/17 19:07 02/16/17 19:07 02/16/17 19:07 Physical exam: General: Well-developed, well-nourished HEENT: Normocephalic, sclerae nonicteric Abdomen: Mild left upper quadrant tenderness, nondistended Extremities: No edema Neuro: Alert and oriented Results - Labs 02/17/17 07:16 02/17/17 07:16 Abnormal Lab Results - Last 24 Hours (Table) 02/16/17 02/16/17 02/16/17 Range/Units 19:15 19:15 20:00 WBC 17.5 H (3.8-10.6) k/uL RBC 5.52 H (3.80-5.40) m/uL Hgb 16.2 H (11.4-16.0) gm/dL Hct 46.3 H (34.0-46.0) % Neutrophils # 15.5 H (1.3-7.7) k/uL Potassium 3.4 L (3.5-5.1) mmol/L BUN 20 H (7-17) mg/dL Glucose 115 H (74-99) mg/dL AST 46 H (14-36) U/L Total Protein (6.3-8.2) g/dL Urine Ketones 1+ H (Negative) Ur Leukocyte Esterase Trace H (Negative) Urine Mucus Rare H (None) /hpf 02/17/17 Range/Units 07:16 WBC (3.8-10.6) k/uL RBC (3.80-5.40) m/uL Hgb (11.4-16.0) gm/dL Hct (34.0-46.0) % Neutrophils # (1.3-7.7) k/uL Potassium 3.4 L (3.5-5.1) mmol/L BUN (7-17) mg/dL Glucose (74-99) mg/dL AST (14-36) U/L Total Protein 6.0 L (6.3-8.2) g/dL Urine Ketones (Negative) Ur Leukocyte Esterase (Negative) Urine Mucus (None) /hpf Diabetes panel 02/16/17 02/17/17 Range/Units 19:15 07:16 Sodium 143 143 (137-145) mmol/L Potassium 3.4 L 3.4 L (3.5-5.1) mmol/L Chloride 103 106 (98-107) mmol/L Carbon Dioxide 26 28 (22-30) mmol/L BUN 20 H 14 (7-17) mg/dL Creatinine 0.70 0.63 (0.52-1.04) mg/dL Glucose 115 H 89 (74-99) mg/dL Calcium 10.1 8.4 (8.4-10.2) mg/dL AST 46 H 31 (14-36) U/L ALT 45 34 (9-52) U/L Alkaline Phosphatase 90 60 (38-126) U/L Total Protein 7.8 6.0 L (6.3-8.2) g/dL Albumin 4.6 3.5 (3.5-5.0) g/dL Calcium panel 02/16/17 02/17/17 Range/Units 19:15 07:16 Calcium 10.1 8.4 (8.4-10.2) mg/dL Albumin 4.6 3.5 (3.5-5.0) g/dL Pituitary panel 02/16/17 02/17/17 Range/Units 19:15 07:16 Sodium 143 143 (137-145) mmol/L Potassium 3.4 L 3.4 L (3.5-5.1) mmol/L Chloride 103 106 (98-107) mmol/L Carbon Dioxide 26 28 (22-30) mmol/L BUN 20 H 14 (7-17) mg/dL Creatinine 0.70 0.63 (0.52-1.04) mg/dL Glucose 115 H 89 (74-99) mg/dL Calcium 10.1 8.4 (8.4-10.2) mg/dL Adrenal panel 02/16/17 02/17/17 Range/Units 19:15 07:16 Sodium 143 143 (137-145) mmol/L Potassium 3.4 L 3.4 L (3.5-5.1) mmol/L Chloride 103 106 (98-107) mmol/L Carbon Dioxide 26 28 (22-30) mmol/L BUN 20 H 14 (7-17) mg/dL Creatinine 0.70 0.63 (0.52-1.04) mg/dL Glucose 115 H 89 (74-99) mg/dL Calcium 10.1 8.4 (8.4-10.2) mg/dL Total Bilirubin 1.0 0.9 (0.2-1.3) mg/dL AST 46 H 31 (14-36) U/L ALT 45 34 (9-52) U/L Alkaline Phosphatase 90 60 (38-126) U/L Total Protein 7.8 6.0 L (6.3-8.2) g/dL Albumin 4.6 3.5 (3.5-5.0) g/dL Assessment and Plan (1) SBO (small bowel obstruction) Narrative/Plan: Patient with CAT scan findings and history consistent with partial small bowel obstruction. This is recurrent after only approximately 1-2 weeks. The options of laparotomy or laparoscopy were discussed with the patient in detail. The patient is not interested in surgical approach at this point but is willing to reconsider pending her course during this hospital stay. Repeat abdominal x-rays will be ordered for tomorrow. The patient will be kept nothing by mouth. A nasogastric tube will be placed if there is any further vomiting. Will consider small bowel series later during this hospitalization or possibly as an outpatient as well. We'll follow closely with you. Status: Acute
[2017-02-17] MEDS: HYDROcodone/APAP 5-325MG 1 EACH TAB PO PRN ×2 (15:49→22:22)
--- NOTE | 2017-02-17 17:59 | PN ---
PROGRESS NOTE DATE OF SERVICE: 02/17/2017. This is a progress note. This 51-year-old, woman who was admitted with abdominal pain, nausea, vomiting, and acute partial small-bowel obstruction is being closely monitored. Dr. Cameron Spencer is following the patient closely. Dr. Barnes has recommended n.p.o. Continue conservative line of management. PHYSICAL EXAM: Alert oriented times three. Pulse 86, blood pressure 144/78, respiration 18, temperature 98.2, pulse ox 94% on room air. HEENT: Conjunctivae normal. Neck: No jugular venous distention. CARDIOVASCULAR: S1, S2 muffled. RESPIRATORY: Diminished breath sounds diminished at the bases. No rhonchi. No crackles. ABDOMEN: Soft, nontender. No mass palpable. Legs: No edema. No swelling. Central nervous system: No focal deficits. LABS: WBC 9.5, hemoglobin 14. The other labs are noted. ASSESSMENT: 1. Abdominal pain. Nausea, possible partial small bowel obstruction. 2. History of partial small bowel obstruction. 3. Hypertension. 4. History of extended spectrum beta lactamase E coli. 5. Obesity, lab band surgery. 6. History of cholecystectomy. 7. History of appendectomy. 8. History of anxiety. 9. Obesity with body mass index of 51.9. RECOMMENDATIONS AND DISCUSSION: Continue current medications. Continue symptomatic treatment. Continue with IV fluid. NPO per Dr. Barnes. Continued conservative line of management per Dr. Barnes. Further recommendations to follow. MMODL / IJN: [id number] /
[2017-02-18] MEDS: HYDROcodone/APAP 5-325MG 1 EACH TAB PO PRN (07:30)
[2017-02-18] MEDS: HEPARIN SODIUM,PORCINE 5,000 UNIT/ML 1 ML VIAL SQ SCH ×2 (07:31→21:27)
[2017-02-18] MEDS: PANTOPRAZOLE 40 MG/10 ML VIAL IVP SCH (07:31)
--- NOTE | 2017-02-18 08:04 | XR ---
2 view abdomen HISTORY: Follow-up bowel obstruction 2 views of the abdomen on 3 images correlated to prior exam 11/08/2014, CT abdomen pelvis 02/16/2017 Right hemidiaphragm is again elevated. Patchy basilar density is noted. Patient is post lap band surg skyler. Somewhat transverse orientation is noted of the lap band. Surgical clips present in the right up per quadrant. No evident pneumoperitoneum or distended bowel loops. IMPRESSION: Nonobstructive bowel gas pattern, correlate clinically. Follow-up as indicated.
[2017-02-18 08:52] LABS: Basophils % (A) 1 %; CH 31.1; CHCM 36.6; Eosinophils # (A) 0.2 k/uL (0-0.7); Eosinophils % (A) 3 %; HCT 41.4 % (34.0-46.0); HDW 3.07; HGB 14.1 gm/dL (11.4-16.0); Luc # (Auto) 0.09; Luc % (Auto) 2; Lymphocytes # (A) 1.6 k/uL (1.0-4.8); Lymphocytes % (A) 26 %; MCH 29.2 pg (25.0-35.0); MCHC 34.2 g/dL (31.0-37.0); MCV 85.5 fL (80.0-100.0); Mean Platelet Volume 8.6; Monocytes # (A) 0.4 k/uL (0-1.0); Monocytes % (A) 6 %; Neutrophils # (A) 3.9 k/uL (1.3-7.7); Neutrophils % (A) 63 %; RBC 4.84 m/uL (3.80-5.40); RDW 14.3 % (11.5-15.5); WBC 6.3 k/uL (3.8-10.6); WBC (Perox) 6.01
[2017-02-18 10:24] LABS: Anion Gap 9 mmol/L; Blood Urea Nitrogen 14 mg/dL (7-17); Calcium 8.6 mg/dL (8.4-10.2); Carbon Dioxide 27 mmol/L (22-30); Chloride 106 mmol/L (98-107); Glucose 85 mg/dL (74-99); Non-African American GFR(MDRD) >60 (>60 ml/min/1.73 sqM); Potassium 3.5 mmol/L (3.5-5.1); Sodium 142 mmol/L (137-145)
--- NOTE | 2017-02-18 11:56 | P.PN ---
Subjective Principal diagnosis: Small bowel obstruction Patient feels well today. No abdominal pain. She did have another bowel movement earlier today. Denies nausea or vomiting. Asking for food at this point. White blood cell count normal. Objective - Vital Signs Vital signs: Vital Signs Temp 97.7 F 02/18/17 07:14 Pulse 68 02/18/17 08:27 Resp 18 02/18/17 08:00 BP 138/90 02/18/17 07:14 Pulse Ox 98 02/17/17 23:00 Intake & Output 02/17/17 02/18/17 02/18/17 18:59 06:59 18:59 Intake Total 300 810 Balance 300 810 Weight 128.82 kg Intake: Intake, IV Titration 300 800 Amount Sodium Chloride 0.9% 1, 300 800 000 ml @ 50 mls/hr IV . Q20H [facility] Rx#:[id number] Oral 10 Other: Voiding Method Toilet # Voids 2 1 - Exam Abdomen: Soft, nondistended, minimal left-sided tenderness - Labs CBC & Chem 7: 02/18/17 06:55 02/18/17 09:19 Assessment and Plan (1) SBO (small bowel obstruction) Narrative/Plan: (Clear liquid diet. Slowly advance as tolerated. Plan outpatient small bowel series if the patient progresses nicely. Status: Acute
--- NOTE | 2017-02-18 12:49 | P.PN ---
Subjective Date of service 02/18/2017. Personal being dictated for Dr. Wells. Interval history: This is a 51-year-old female admitted with abdominal pain, nausea, possible partial small bowel obstruction in a patient with history of partial small bowel obstruction, LAP-BAND surgery and multiple other medical issues. Evaluated by surgery with recommendations noted. Remains nothing by mouth. Denies further emesis, minimal nausea. Passing flatus with small bowel movement this morning. Denies abdominal pain, states bilateral lower quadrant soreness related to heparin subcu injections, denies cramping. Denies chest pain, palpitations or increased shortness of breath. Afebrile.Abdominal xray this am noted, reporting nonobstructive bowel gas pattern. Objective - Vital Signs Vital signs: Vital Signs Temp 97.7 F 02/18/17 07:14 Pulse 68 02/18/17 08:27 Resp 18 02/18/17 08:00 BP 138/90 02/18/17 07:14 Pulse Ox 98 02/17/17 23:00 Intake & Output 02/17/17 02/18/17 02/18/17 18:59 06:59 18:59 Intake Total 300 810 Balance 300 810 Weight 128.82 kg Intake: Intake, IV Titration 300 800 Amount Sodium Chloride 0.9% 1, 300 800 000 ml @ 50 mls/hr IV . Q20H [facility] Rx#:[id number] Oral 10 Other: Voiding Method Toilet # Voids 2 1 - Exam PHYSICAL EXAM: VITAL SIGNS: As above GENERAL: [Sitting up in bed, no acute distress] HEENT: [Pupils equal conjunctiva normal. Oral mucosa dry] NECK: No JVD. No thyroid enlargement. No LNs CARDIOVASCULAR: S1, S2 muffled. No murmur RESPIRATION: Breath sounds diminished in the bases. No rhonchi or crackles. No bronchial breathing. ABDOMEN: Soft, nontender.No guarding. no masses palpable. No ascites. LEGS: No edema. no swelling NERVOUS SYSTEM: Cranial N 2-12 grossly normal. Moves all 4 limbs. No focal deficits. No sensory deficit. Skin: no ulcer no rash . Joints: No active swelling. No inflammation. - Labs CBC & Chem 7: 02/18/17 06:55 02/18/17 09:19 Assessment and Plan Plan: 1. [ Abdominal pain with nausea, possible partial small bowel structure and in a patient with history of partial small bowel obstruction]. 2. [ Obesity,BMI 51.9, history of lap band surgery]. 3. [ Hypertension]. Plan: Continue on current medication regime ,monitoring and symptomatic treatment. Maintain IV fluid hydration. Conservative management with diet advancement as per surgery. Increase ambulation as tolerated. Further recommendations to follow. The impression and plan of care has been dictated as directed. : I performed a H&P examination of this patient and discussed the same with the dictator. I agree with the dictator's note. Any additional findings/opinions/ etc. will be noted.
[2017-02-18] MEDS: SODIUM CHLORIDE 0.9% 1,000 ML IV SCH (17:02)
[2017-02-19] MEDS: HYDROcodone/APAP 5-325MG 1 EACH TAB PO PRN (05:16)
[2017-02-19] MEDS: PANTOPRAZOLE 40 MG/10 ML VIAL IVP SCH (07:42)
[2017-02-19] MEDS: HEPARIN SODIUM,PORCINE 5,000 UNIT/ML 1 ML VIAL SQ SCH (07:43)
[2017-02-19 08:17] VITALS: BP 138/72; PULSE 64; RESP 15; TEMP 97.5
[2017-02-19 09:21] LABS: Basophils % (A) 0 %; CH 29.9; CHCM 35.8; Eosinophils # (A) 0.2 k/uL (0-0.7); Eosinophils % (A) 3 %; HCT 40.2 % (34.0-46.0); HDW 3.05; HGB 14.2 gm/dL (11.4-16.0); Luc # (Auto) 0.08; Luc % (Auto) 1; Lymphocytes # (A) 1.8 k/uL (1.0-4.8); Lymphocytes % (A) 26 %; MCH 29.6 pg (25.0-35.0); MCHC 35.3 g/dL (31.0-37.0); Monocytes # (A) 0.4 k/uL (0-1.0); Monocytes % (A) 6 %; Neutrophils # (A) 4.5 k/uL (1.3-7.7); Neutrophils % (A) 64 %; RBC 4.78 m/uL (3.80-5.40); RDW 13.4 % (11.5-15.5); WBC (Perox) 7.47
[2017-02-19 10:09] LABS: Anion Gap 9 mmol/L; Blood Urea Nitrogen 14 mg/dL (7-17); Calcium 9.1 mg/dL (8.4-10.2); Carbon Dioxide 24 mmol/L (22-30); Chloride 110 mmol/L (98-107); Glucose 109 mg/dL (74-99); Non-African American GFR(MDRD) >60 (>60 ml/min/1.73 sqM); Potassium 3.9 mmol/L (3.5-5.1); Sodium 143 mmol/L (137-145)
[2017-02-19] MEDS ORDERED: Potassium Replacement Protocol 1 EACH MISC MISCELLANE PRN (10:40)
[2017-02-19] MEDS ORDERED: Magnesium Replacement Protocol 1 EACH MISC MISCELLANE PRN (10:41)
--- NOTE | 2017-02-19 15:58 | P.DS ---
Providers Date of admission: 02/17/17 15:49 Attending physician: Delano Holley MD Consults: 02/16/17 22:41 Consult Physician Routine Consulting Provider: Lance Barnes Consult Reason/Comments: Lap band Do you want consulting provider notified?: Yes, Notify in am Primary care physician: Melissa Barnes [facility] Course: This 51-year-old woman with a past medical history multiple medical problems was admitted with abdominal pain nausea. Possible partial small bowel obstruction was considered. Dr. Barnes saw the patient. Conservative plan of management was followed. Diet was progressively advanced. Patient was able to tolerate the food. Patient improved significantly. Patient be discharged in a stable pressure the guarded prognosis with further plans to follow up with the primary physician and Dr. Barnes in the outpatient setting. On exam vitals stable. Cardio S1 and S2 normal. Abdomen soft nontender. Chest clear to auscultation. Final diagnosis 1. Abdominal pain nausea possible peripheral partial small bowel obstruction improved. 2. History of lab and surgery. 3. Obesity body mass index of 51.9 4. Hypertension. Patient Condition at Discharge: Good Plan - Discharge Summary New Discharge Prescriptions: Continue Hydrochlorothiazide [Hydrodiuril] 25 mg PO DAILY HYDROcodone/APAP 10-325MG [[place] 10-325] 1 tab PO TID PRN PRN Reason: Pain Docusate [Colace] 100 mg PO DAILY #100 capsule Discontinued Ibuprofen [Motrin] 800 mg PO TID PRN PRN Reason: Pain Discharge Medication List Hydrochlorothiazide [Hydrodiuril] 25 mg PO DAILY 11/08/14 [History] HYDROcodone/APAP 10-325MG [[place] 10-325] 1 tab PO TID PRN 02/06/17 [History] Docusate [Colace] 100 mg PO DAILY #100 capsule 02/08/17 [Rx] Follow up Appointment(s)/Referral(s): Lance Barnes MD [Medical Doctor] - As Needed Melissa Barnes MD [Primary Care Provider] - 02/23/17 2:30 pm Ambulatory/Diagnostic Orders: Basic Metabolic Panel [LAB.AMB] Time Frame: 3 Days, Location: Determined By Patient Patient Instructions/Handouts: Dehydration (DC), Leukocytosis (DC), Bowel Obstruction (DC) Activity/Diet/Wound Care/Special Instructions: Diet: SOft [place] Activity: limited Till F/U ] Discharge Disposition: HOME SELF-CARE
[2017-02-19] MEDS ORDERED: DOCUSATE 100 MG CAP PO SCH (21:00)
== END 2017-02-19 12:00 | disposition home or self-care (01) | DRG 389 ==
LOC: EC 19:04 → 5MS5E 20:58 → OBSVTOIN 02-17 15:49
PROVIDERS: ADMIT Internal Medicine; ATTEND Internal Medicine
DX: K56.60 Unspecified intestinal obstruction (principal); Z68.43 Body mass index [BMI] 50.0-59.9, adult; I10 Essential (primary) hypertension; E86.0 Dehydration; D72.829 Elevated white blood cell count, unspecified; R53.83 Other fatigue; E66.9 Obesity, unspecified; Z90.49 Acquired absence of other specified parts of digestive tract; Z79.899 Other long term (current) drug therapy; Z88.0 Allergy status to penicillin; Z98.890 Other specified postprocedural states; Z80.9 Family history of malignant neoplasm, unspecified; Z88.2 Allergy status to sulfonamides; Z87.19 Personal history of other diseases of the digestive system; Z87.09 Personal history of other diseases of the respiratory system; Z87.440 Personal history of urinary (tract) infections; Z86.19 Personal history of other infectious and parasitic diseases; Z86.59 Personal history of other mental and behavioral disorders; Z79.1 Long term (current) use of non-steroidal anti-inflammatories (NSAID); Z79.891 Long term (current) use of opiate analgesic; Z98.84 Bariatric surgery status; Z96.659 Presence of unspecified artificial knee joint
CPT/HCPCS: 36415; 74020; 74022; 74177; 80048; 80053; 81001; 83690; 83735; 85025; 96361; 96374; 96375; 99285

== ENCOUNTER → 2017-06-11 | Outpatient (CLI) | payer BC ==
--- NOTE | 2017-06-11 18:10 | FL ---
EXAMINATION: Small bowel follow through DATE: 06/11/2017 CLINICAL INDICATION: 51-year-old female follow-up bowel obstruction COMPARISON: CT 02/16/2017 Total Fluoroscopy Time: 38 seconds Total images: 17 FINDINGS: Following administration of barium, serial films were carried out to 1 hour 30 minutes. Barium is see n to reach the colon. A laparoscopic banding device is present. Loops of jejunum and ileum are compressed and examined under fluoroscopy. The small bowel loops have a normal-caliber. Mucosal pattern is within normal limits. No intrinsic or extrinsic process is suspe cted. IMPRESSION: Normal small bowel examination
== END ==
LOC: RADFLMAIN 08:04
PROVIDERS: ATTEND Surgery
DX: K56.609 Unspecified intestinal obstruction, unspecified as to partial versus complete obstruction (principal)
CPT/HCPCS: 74250

== ENCOUNTER → 2017-07-07 | Outpatient (CLI) | payer BC ==
--- NOTE | 2017-07-08 08:45 | MM ---
Reason for exam: screening (asymptomatic). Last mammogram was performed 7 years and 2 months ago. History: Patient is postmenopausal. Family history of breast cancer in maternal aunt at age 60. Reduction of the left breast, 1994. Reduction of the right breast, 1994. Cyst aspiration of the left breast. Physical Findings: A clinical breast exam by your physician is recommended on an annual basis and results should be correlated with mammographic findings. MG Screening Mammo w CAD Bilateral CC and MLO view(s) were taken. Prior study comparison: April 29, 2010, bilateral diagnostic digital mammog. April 24, 2009, bilateral digital screening mammogram. There are scattered fibroglandular densities. Benign calcifications bilaterally. ASSESSMENT: Benign, BI-RAD 2 RECOMMENDATION: Routine screening mammogram of both breasts in 1 year.
== END | disposition home or self-care (01) ==
LOC: RADMAMWWP 15:16
PROVIDERS: ATTEND Family Medicine
DX: Z12.31 Encounter for screening mammogram for malignant neoplasm of breast (principal)
CPT/HCPCS: 77067